=== PATIENT | male | born 1950 | race Caucasian/White ===

== ENCOUNTER 2017-12-30 14:22 | Outpatient (CLI) | payer MEDICARE ==
[2017-12-30 14:40] LABS: BASOPHILS % (AUTO) 0.3 %; EOSINOPHILS # (AUTO) 0.1 10^3/uL (0.0-0.7); HGB - HEMOGLOBIN 13.4 g/dL (14.0-18.0); LYMPHOCYTES # (AUTO) 1.3 10^3/uL (1.5-3.5); LYMPHOCYTES % (AUTO) 22.4 %; MEAN CORPUSCULAR HEMOGLOBIN 32.9 pg (27.0-31.0); MEAN CORPUSCULAR HGB CONC 34.2 g/dL (32.0-36.0); MEAN CORPUSCULAR VOLUME 96.2 fL (80.0-94.0); MONOCYTES # (AUTO) 0.6 10^3/uL (0.0-1.0); MONOCYTES % (AUTO) 10.8 %; NEUTROPHILS # (AUTO) 3.8 10^3/uL (1.5-6.6); NEUTROPHILS % (AUTO) 65.5 %; PLT - PLATELET COUNT 216 10^3/uL (130-450); RED BLOOD COUNT 4.07 10^6/uL (4.70-6.10); RED CELL DISTRIBUTION WIDTH 13.7 % (12.0-15.0); WHITE BLOOD COUNT 5.8 x10^3/uL (4.8-10.8)
[2017-12-30 15:06] LABS: ALBUMIN 4.6 g/dL (3.2-5.5); ALBUMIN/GLOBULIN RATIO 1.9 (1.0-2.2); ALKALINE PHOSPHATASE 61 IU/L (42-121); ALT ALANINE AMINOTRANSFERASE 32 IU/L (10-60); AST ASPARTATE AMINOTRANSFERASE 31 IU/L (10-42); BILIRUBIN,TOTAL 0.4 mg/dL (0.2-1.0); BUN - BLOOD UREA NITROGEN 14 mg/dL (6-20); CALCIUM 8.9 mg/dL (8.5-10.3); CARBON DIOXIDE - CO2 26 mmol/L (21-32); CHLORIDE 97 mmol/L (101-111); CHOLESTEROL 169 mg/dL; CREATININE 0.6 mg/dL (0.6-1.2); GFR - MDRD 134 (>89); GLUCOSE 99 mg/dL (70-100); HDL CHOLESTEROL 83 mg/dL; SODIUM 132 mmol/L (135-145)
[2017-12-30 15:29] LABS: LDL CHOLESTEROL,DIRECT 70 mg/dL; LDLD/HDL RATIO 0.8 (<3.6)
--- NOTE | 2017-12-31 12:40 | DEXA Report ---
DEXA SCAN: 12/30/2017 CLINICAL INDICATION: History of seizure disorder, high risk medication use. TECHNIQUE: Dual energy x-ray absorptiometry (DXA) was performed on a [employer] system. Regions measured are the AP spine, femoral neck, and, if needed, forearm. COMPARISON: None. In accordance with the International Society for Clinical Densitometry (ISCD) guidelines, data from previous exams may be reanalyzed using current recommendations and techniques. This is done to allow a more accurate basis for comparison with the current study. FINDINGS Data for the lumbar spine is as follows: REGION BMD (g/cm/cm) T-SCORE Z-SCORE L1 1.116 -0.4 0.2 L2 1.310 0.6 1.1 L3 1.461 1.8 2.4 L4 1.564 2.7 3.3 L1-L4 1.367 1.2 1.8 NOTE: All evaluable vertebrae are used for classification. Data for the hip is as follows: REGION BMD (g/cm/cm) T-SCORE Z-SCORE Neck 0.850 -1.7 -0.5 TOTAL 0.866 -1.6 -0.9 NOTE: The femoral neck or total proximal femur, whichever is lowest, is used for classification. IMPRESSION WHO CLASSIFICATION BASED ON THE INTERNATIONAL REFERENCE STANDARD IS OSTEOPENIA. FRACTURE RISK IS INCREASED. RECOMMENDATION: Patients with diagnosis of osteoporosis or osteopenia should have regular bone mineral density assessment. For those eligible for Medicare, routine testing is allowed once every 2 years. Testing frequency can be increased for patients who have rapidly progressing disease or for those who are receiving medical therapy to restore bone mass. COMMENT World Health Organization (WHO) definitions for osteoporosis and osteopenia: NORMAL BMD: T-score at 1.0 or higher, fracture risk is low. OSTEOPENIA BMD: T-score between 1.0 and -2.5, fracture risk is increased. OSTEOPOROSIS BMD: T-score at 2.5 or lower, fracture risk high. National Osteoporosis Foundation recommends: 1. Obtain adequate dietary calcium (at least 1200 mg per day) and vitamin D (400 -800 international units per day). 2. Participate, as appropriate, in regular weightbearing and muscle- strengthening exercise. 3. Avoid tobacco use and reduce alcohol and caffeine intake. 4. For more detailed information see the website at www.NOF.org. TD: 12/30/2017 16:22 MTDDave
== END 2017-12-30 14:23 | disposition home or self-care (01) ==
LOC: DI 14:22
PROVIDERS: ATTEND Internal Medicine
DX: M85.89 Other specified disorders of bone density and structure, multiple sites (principal); R56.9 Unspecified convulsions; Z79.899 Other long term (current) drug therapy; I10 Essential (primary) hypertension; I25.10 Atherosclerotic heart disease of native coronary artery without angina pectoris; E78.5 Hyperlipidemia, unspecified; G63 Polyneuropathy in diseases classified elsewhere
CPT/HCPCS: 36415; 77080; 80053; 80061; 83721; 84153; 84443; 85025

== ENCOUNTER 2018-06-12 10:11 | Outpatient (CLI) | payer MEDICARE | END 2018-06-12 10:12 | disposition home or self-care (01) | LOC: LAB 10:11 | PROVIDERS: ATTEND Surgery | DX: Z53.9 Procedure and treatment not carried out, unspecified reason (principal) ==

== ENCOUNTER 2018-11-26 13:53 | Outpatient (CLI) | payer MEDICARE ==
[2018-11-26 14:16] LABS: BASOPHILS % (AUTO) 0.3 %; EOSINOPHILS # (AUTO) 0.1 10^3/uL (0.0-0.7); EOSINOPHILS % (AUTO) 1.8 %; HGB - HEMOGLOBIN 12.8 g/dL (14.0-18.0); LYMPHOCYTES # (AUTO) 1.4 10^3/uL (1.5-3.5); LYMPHOCYTES % (AUTO) 24.8 %; MEAN CORPUSCULAR HEMOGLOBIN 32.6 pg (27.0-31.0); MEAN CORPUSCULAR HGB CONC 34.1 g/dL (32.0-36.0); MEAN CORPUSCULAR VOLUME 95.6 fL (80.0-94.0); MEAN PLATELET VOLUME 7.1 fL (7.4-11.4); MONOCYTES # (AUTO) 0.6 10^3/uL (0.0-1.0); NEUTROPHILS # (AUTO) 3.5 10^3/uL (1.5-6.6); NEUTROPHILS % (AUTO) 63.1 %; PLT - PLATELET COUNT 212 10^3/uL (130-450); RED BLOOD COUNT 3.92 10^6/uL (4.70-6.10); RED CELL DISTRIBUTION WIDTH 13.6 % (12.0-15.0); WHITE BLOOD COUNT 5.5 x10^3/uL (4.8-10.8)
[2018-11-26 14:30] LABS: ALBUMIN/GLOBULIN RATIO 1.3 (1.0-2.2); ALKALINE PHOSPHATASE 79 IU/L (42-121); ALT ALANINE AMINOTRANSFERASE 28 IU/L (10-60); AST ASPARTATE AMINOTRANSFERASE 27 IU/L (10-42); BILIRUBIN,TOTAL 0.3 mg/dL (0.2-1.0); BUN - BLOOD UREA NITROGEN 11 mg/dL (6-20); CARBAMAZEPINE (TEGRETOL) 6.3 ug/mL; CARBON DIOXIDE - CO2 24 mmol/L (21-32); CHLORIDE 100 mmol/L (101-111); CREATININE 0.6 mg/dL (0.6-1.2); GFR - MDRD 134 (>89); GLUCOSE 101 mg/dL (70-100); SODIUM 133 mmol/L (135-145)
== END 2018-11-26 13:54 | disposition home or self-care (01) ==
LOC: LAB 13:53
PROVIDERS: ATTEND Psychiatry & Neurology Neurology
DX: G40.909 Epilepsy, unspecified, not intractable, without status epilepticus (principal)
CPT/HCPCS: 36415; 80053; 80156; 80177; 82607; 85025

== ENCOUNTER 2018-12-18 13:58 | Outpatient (CLI) | payer MEDICARE | END 2018-12-18 13:59 | disposition home or self-care (01) | LOC: LAB 13:58 | PROVIDERS: ATTEND Psychiatry & Neurology Neurology | DX: G40.909 Epilepsy, unspecified, not intractable, without status epilepticus (principal) | CPT/HCPCS: 36415; 80177 ==

== ENCOUNTER 2019-10-19 10:28 | Outpatient (CLI) | payer MEDICARE ==
--- NOTE | 2019-10-19 14:18 | CARDIAC PROCEDURE NOTE ---
DATE OF SERVICE: 10/19/2019 Physician: Melissa Sevilla MD PROTOCOL: Modified Eugene. TIME: 7 minutes 32 seconds. METS: 7.05. REASON FOR STOPPING: Dyspnea and balance issues. Patient had also exercised for 1 minute after inje ction after having reached 85% of maximum predicted heart rate. HEART RATE RESPONSE: Baseline 49 to maximum 138. BLOOD PRESSURE RESPONSE: Baseline 124/69 to maximum 247/94. SYMPTOMS: None. ST SEGMENT RESPONSE: No significant ST segment elevations or depressions. ARRHYTHMIAS: None detected. IMPRESSION: No symptoms. No significant EKG changes. CONCLUSION: Await imaging studies. TD: 10/19/2019 13:03
--- NOTE | 2019-10-19 14:25 | Nuclear Medicine Report ---
Reason: CHEST PX, CAD Procedure Date: 10/19/2019 Accession Number: [id number] / [id number] Procedure: NM - Myocardial Perfusion STR/RST CPT Code: Final Report FULL RESULT: EXAM: SINGLE-ISOTOPE EXERCISE STRESS TEST. SINGLE-ISOTOPE AND ONE-DAY REST/STRESS MYOCARDIAL PERFUSION SCANS WITH TOMOGRAPHIC IMAGING, QUANTITATIVE ANALYSIS, WALL MOTION ANALYSIS AND CALCULATION OF EJECTION FRACTION. EXAM DATE: 10/19/2019 01:52 PM. CLINICAL HISTORY: CHEST PX, CAD. History of myocardial infarction. COMPARISON: None. TECHNIQUE: A rest myocardial perfusion scan was done with tomography after the intravenous administration of 10.9 mCi Tc-99m sestamibi. After an appropriate delay, a treadmill exercise stress was performed according to department protocol. The patient exercised for 7 minutes and 32 seconds. The maximum heart rate was 138 bpm, which was 92% of the maximum predicted heart rate of 150 bpm. At approximately peak heart rate, 41.6 mCi of Tc-99m sestamibi was injected for stress myocardial perfusion scan. Motion correction was applied when appropriate. Gated tomographic images were obtained for wall motion analysis and computation of left ventricular ejection fraction. FINDINGS: Perfusion images: Left ventricular chamber size appears normal at rest and unchanged at stress. No convincing fixed perfusion deficits. No convincing reversible perfusion deficits. SSS 2, SRS 2, SDS 0. Gated images: No convincing focal wall motion abnormality. Calculated left ventricular EDV 81 mL, ESV 17 mL. The left ventricular ejection fraction is estimated at 79% (normal > 50%). IMPRESSION: 1. No convincing reversible perfusion deficits to indicate stress-induced ischemia. 2. No convincing fixed perfusion deficits. 3. Left ventricular ejection fraction of 79% (normal > 50%). Please correlate findings with stress ECG tracings and procedure notes. RADIA
== END 2019-10-19 10:29 | disposition home or self-care (01) ==
LOC: DI 10:28
PROVIDERS: ATTEND Internal Medicine
DX: R07.9 Chest pain, unspecified (principal); I25.10 Atherosclerotic heart disease of native coronary artery without angina pectoris; R06.00 Dyspnea, unspecified; I25.2 Old myocardial infarction
CPT/HCPCS: 78452; 93017; A9500

== ENCOUNTER 2021-01-05 13:35 | Outpatient (CLI) | payer MEDICARE ==
[2021-01-05 13:52] LABS: BASOPHILS % (AUTO) 0.2 %; EOSINOPHILS # (AUTO) 0.1 10^3/uL (0.0-0.7); EOSINOPHILS % (AUTO) 2.6 %; HCT - HEMATOCRIT 41.1 % (42.0-52.0); HGB - HEMOGLOBIN 13.7 g/dL (14.0-18.0); LYMPHOCYTES # (AUTO) 1.3 10^3/uL (1.5-3.5); LYMPHOCYTES % (AUTO) 24.6 %; MEAN CORPUSCULAR HEMOGLOBIN 32.2 pg (27.0-31.0); MEAN CORPUSCULAR HGB CONC 33.3 g/dL (32.0-36.0); MEAN CORPUSCULAR VOLUME 96.7 fL (80.0-94.0); MEAN PLATELET VOLUME 8.8 fL (7.4-11.4); MONOCYTES # (AUTO) 0.7 10^3/uL (0.0-1.0); NEUTROPHILS # (AUTO) 3.2 10^3/uL (1.5-6.6); NEUTROPHILS % (AUTO) 59.4 %; PLT - PLATELET COUNT 223 10^3/uL (130-450); RED BLOOD COUNT 4.25 10^6/uL (4.70-6.10); RED CELL DISTRIBUTION WIDTH 13.2 % (12.0-15.0); WHITE BLOOD COUNT 5.4 x10^3/uL (4.8-10.8)
[2021-01-05 14:06] LABS: ALBUMIN 4.4 g/dL (3.2-5.5); ALBUMIN/GLOBULIN RATIO 1.6 (1.0-2.2); BILIRUBIN,TOTAL 0.4 mg/dL (0.2-1.0); CALCIUM 9.2 mg/dL (8.5-10.3); CREATININE 0.7 mg/dL (0.6-1.2); POTASSIUM 4.2 mmol/L (3.5-5.0); TOTAL PROTEIN 7.2 g/dL (6.7-8.2)
== END 2021-01-05 13:36 | disposition home or self-care (01) ==
LOC: LAB 13:35
PROVIDERS: ATTEND Psychiatry & Neurology Neurology
DX: G40.909 Epilepsy, unspecified, not intractable, without status epilepticus (principal)
CPT/HCPCS: 36415; 80053; 80157; 80177; 81599; 85025

== ENCOUNTER 2021-11-11 16:17 | Outpatient (CLI) | payer MEDICARE | END 2021-11-11 16:18 | disposition critical access hospital (66) | LOC: EMS 16:17 | DX: R56.9 Unspecified convulsions (principal) | CPT/HCPCS: A0425; A0429 ==

== ENCOUNTER 2021-11-11 16:22 | Emergency (ER) | payer MEDICARE ==
[2021-11-11 16:55] LABS: BASOPHILS % (AUTO) 0.2 %; EOSINOPHILS # (AUTO) 0.1 10^3/uL (0.0-0.7); HCT - HEMATOCRIT 40.2 % (42.0-52.0); HGB - HEMOGLOBIN 13.8 g/dL (14.0-18.0); LYMPHOCYTES # (AUTO) 1.3 10^3/uL (1.5-3.5); LYMPHOCYTES % (AUTO) 24.1 %; MEAN CORPUSCULAR HGB CONC 34.3 g/dL (32.0-36.0); MEAN CORPUSCULAR VOLUME 96.2 fL (80.0-94.0); MEAN PLATELET VOLUME 8.6 fL (7.4-11.4); MONOCYTES # (AUTO) 0.7 10^3/uL (0.0-1.0); MONOCYTES % (AUTO) 13.3 %; NEUTROPHILS # (AUTO) 3.2 10^3/uL (1.5-6.6); PLT - PLATELET COUNT 206 10^3/uL (130-450); RED BLOOD COUNT 4.18 10^6/uL (4.70-6.10); RED CELL DISTRIBUTION WIDTH 13.5 % (12.0-15.0); WHITE BLOOD COUNT 5.3 x10^3/uL (4.8-10.8)
--- NOTE | 2021-11-11 17:00 | ED Physician Documentation ---
History of Present Illness - Stated complaint Stated Complaint: SZ - Chief complaint Chief Complaint: Neuro - Additonal information Additional information: 71-year-old male who has a known seizure disorder presents the emergency department via EMS for evaluation after a seizure. He is amnesic to the events but he reports to me that he last had a seizure about 4 months ago. He describes that his seizures are typically petit mall. EMS was told that he was having a grand mall seizure. Patient is attended to by a neurologist but he is unsure the name of his neurologist or the names of his 2 antiepileptics. However he denies that he is missed any doses. Denies any cough or fevers. No recent illness nausea or vomiting. No dysuria. I spoke with the patient's . She reports that he typically has petit mall seizures. She thinks he has them about once weekly but they are typically in his sleep. Today seizure occurred when he was at rest in his recliner. She describes a generalized tonic-clonic or grand mal seizure that lasted about 3 minutes. He was foaming at the mouth. No loss of bowel or bladder. Patient does take carbamazepine 400 mg twice daily as well as Keppra 1000 mg twice daily. Review of Systems Constitutional: denies: Fever, Chills Eyes: reports: Reviewed and negative Ears: reports: Reviewed and negative Nose: reports: Reviewed and negative Throat: reports: Reviewed and negative Cardiac: reports: Reviewed and negative Respiratory: reports: Reviewed and negative GI: reports: Abdominal Pain, Nausea, Vomiting : denies: Dysuria, Frequency, Hesitancy Skin: denies: Rash, Lesions Musculoskeletal: reports: Reviewed and negative Neurologic: reports: Seizure. denies: Focal weakness, Numbness, Difficulty speaking, Confused, Altered mental status, Headache, LOC PD PAST MEDICAL HISTORY - Past Medical History Cardiovascular: Other - Past Surgical History Cardiovascular: Other - Present Medications Home Medications: Ambulatory Orders Medication Instructions Recorded Confirmed Ascorbate Calcium [Vitamin C] 500 mg PO BID 05/10/15 11/11/21 Aspirin [Aspir-Low] 81 mg PO DAILY 05/10/15 11/11/21 Atorvastatin [Lipitor] 1 tab PO DAILY 05/10/15 11/11/21 Calcium Carbonate [Calcium] 500 mg PO BID 05/10/15 11/11/21 Carbamazepine [Carbamazepine Xr] 400 tab PO BID 05/10/15 11/11/21 Cholecalciferol (Vitamin D3) 1,000 unit PO BID 05/10/15 11/11/21 [Vitamin D] Gluc Dowd/Chondro Dowd A/Vit C/Mn 1 cap PO BID 05/10/15 11/11/21 [Glucosamine 1,500 Complex Cp] Lisinopril 40 mg PO DAILY 05/10/15 11/11/21 Metoprolol Tartrate 25 mg PO DAILY 05/10/15 11/11/21 Multivitamin with Minerals 1 each PO BID 05/10/15 11/11/21 [Multiple Vitamin] [place]-3 Fatty Acids/Fish Oil [Fish 1 each PO BID 05/10/15 11/11/21 Oil 1,000 mg Capsule] Levetiracetam [Keppra Xr] 1,000 mg PO BID 11/11/21 11/11/21 - Allergies Allergies/Adverse Reactions: Allergies Allergy/AdvReac Type Severity Reaction Status Date / Time No Known Drug Allergies Allergy Verified 12/27/20 11:53 PD ED PE NORMAL - General General: Alert and oriented X 3, No acute distress, Well developed/nourished - HEENT HEENT: Atraumatic, Ears normal, Moist mucous membranes, Pharynx benign - Neck Neck: Supple, no meningeal sign, No adenopathy - Cardiac Cardiac: RRR, No murmur - Respiratory Respiratory: No respiratory distress, Clear bilaterally - Abdomen Abdomen: Normal bowel sounds, Soft, Non tender - Back Back: No spinal TTP - Derm Derm: Normal color, Warm and dry, No rash - Extremities Extremities: No deformity, No tenderness to palpate, Normal ROM s pain - Neuro Neuro: Alert and oriented X 3, shirt creaser 2-12 intact Eye Opening: Spontaneous Motor: Obeys Commands Verbal: Oriented GCS Score: 15 Results - Vitals Vitals: Vital Signs - 24 hr 11/11/21 11/11/21 16:26 16:34 Temperature 36.4 C L 36.5 C Heart Rate 78 86 Respiratory 10 L 15 Rate Blood Pressure 161/82 H 161/82 H O2 Saturation 95 97 Oxygen O2 Source Room air - Labs Labs: Laboratory Tests 11/11/21 11/11/21 16:50 16:50 WBC 5.3 RBC 4.18 L Hgb 13.8 L Hct 40.2 L MCV 96.2 H MCH 33.0 H MCHC 34.3 RDW 13.5 Plt Count 206 MPV 8.6 Neut # (Auto) 3.2 Lymph # (Auto) 1.3 L [place] # (Auto) 0.7 Eos # (Auto) 0.1 Baso # (Auto) 0.0 Absolute Nucleated RBC 0.00 Nucleated RBC % 0.0 Sodium 136 Potassium 3.5 Chloride 99 L Carbon Dioxide 21 Anion Gap 16.0 H BUN 13 Creatinine 0.8 Estimated GFR (MDRD) 95 Glucose 147 H Calcium 9.0 Total Bilirubin 0.6 AST 33 ALT 35 Alkaline Phosphatase 82 Total Protein 6.9 Albumin 4.2 Globulin 2.7 Albumin/Globulin Ratio 1.6 Lipase 29 - Rads (name of study) CT head Radiology: Final report received (No CT evidence of acute intracranial abnormalities. Age-related atrophy and mild white matter chronic small vessel ischemic changes) PD MEDICAL DECISION MAKING - ED course Complexity details: reviewed results, re-evaluated patient, considered differential, d/w patient, d/w senior clinical consultant (Rebecca with [facility]) ED course: 71-year-old male presents emergency department for evaluation after a grand mall seizure described by his at home. This gentleman does have a history of a seizure disorder but typically has petit mall seizures usually at night and about once a week. His presentation here is consistent with a seizure though he is amnesic to the events on initial presentation he has no focal neuro deficits and is alerted to person place and time. Screening labs are unrevealing. CT of the head was without acute findings. I did discuss this case with Dr. Mantilla his neurologist through [facility]. He makes the recommendation to increase his Keppra to 1500 mg each evening but continue 1000 mg in the mornings. He also makes the recommendation to increase the carbamazepine to 600 mg in the evening but continue 400 mg in the morning and he would like follow-up in his office. This plan has been discussed with the patient and his who are in agreement. Departure - Departure Disposition: 01 Home, Self Care Clinical Impression: Seizure Condition: Stable Record reviewed to determine appropriate education?: Yes Comments: Lj marquez are seen today in the emergency department after an apparent grand mal seizure at home. Your screening CT scan and labs today are unremarkable. I did discuss this case with Dr. Mccartney your neurologist through [facility]. He would make the recommendation for the following dose adjustments in your medications. Keppra 1000 mg every morning and 1500 mg every evening Carbamazepine 400 mg every morning and 600 mg every evening. He makes the recommendation that you call his office to arrange follow-up within the next few weeks. If at any point you find that your seizures are worsening, you have fevers chest pain slurred speech or focal weakness in your arms or legs and please return immediately to the ER for a second evaluation
[2021-11-11 17:09] LABS: ALBUMIN 4.2 g/dL (3.2-5.5); ALBUMIN/GLOBULIN RATIO 1.6 (1.0-2.2); BILIRUBIN,TOTAL 0.6 mg/dL (0.2-1.0); CREATININE 0.8 mg/dL (0.6-1.2); POTASSIUM 3.5 mmol/L (3.5-5.0); TOTAL PROTEIN 6.9 g/dL (6.7-8.2)
--- NOTE | 2021-11-11 18:21 | CT Report ---
PROCEDURE: HEAD WO INDICATIONS: seizure TECHNIQUE: Noncontrast 4.5 mm thick angled axial sections acquired from the foramen magnum to the vertex. For r adiation dose reduction, the following was used: automated exposure control, adjustment of mA and/or kV according to patient size. COMPARISON: None FINDINGS: Image quality: Excellent. CSF spaces: Basal cisterns are patent. No extra-axial fluid collections. The ventricles are symmet johanna in size and shape. Brain: No intracranial bleeds or masses. There is cerebral volume loss for age, with resultant vent ricular and sulcal prominence. There are periventricular and deep white matter chronic small vessel ischemic changes. There is intracranial internal carotid artery atherosclerosis. Skull and face: Calvarium and visualized facial bones appear intact, without suspicious lesions. Sinuses: Visualized sinuses and mastoids are clear. IMPRESSION: 1. No CT evidence of acute intracranial abnormalities. 2. Age-related atrophy and mild white matter chronic small vessel ischemic changes. Reviewed by: Brando Nash MD on 11/11/2021 6:19 PM PST Approved by: Brando Nash MD on 11/11/2021 6:19 PM PST Station ID: [id number]
[2021-11-11 18:36] VITALS: BP 130/80
== END 2021-11-11 18:41 | disposition home or self-care (01) ==
LOC: EDUNIT# → ED 16:22
DX: G40.401 Other generalized epilepsy and epileptic syndromes, not intractable, with status epilepticus (principal)
CPT/HCPCS: 36415; 80053; 83690; 85025; 99284

== ENCOUNTER 2021-11-11 22:05 | Outpatient (CLI) | payer MEDICARE | END 2021-11-11 22:06 | disposition critical access hospital (66) | LOC: EMS 22:05 | DX: R56.9 Unspecified convulsions (principal); S01.21XA Laceration without foreign body of nose, initial encounter; W22.03XA Walked into furniture, initial encounter; Y93.89 Activity, other specified; Y92.009 Unspecified place in unspecified non-institutional (private) residence as the place of occurrence of the external cause | CPT/HCPCS: A0425; A0429 ==

== ENCOUNTER 2021-11-11 22:11 | Emergency (ER) | payer MEDICARE ==
[2021-11-11 22:31] LABS: BASOPHILS % (AUTO) 0.1 %; EOSINOPHILS % (AUTO) 0.1 %; HCT - HEMATOCRIT 39.5 % (42.0-52.0); HGB - HEMOGLOBIN 13.7 g/dL (14.0-18.0); LYMPHOCYTES # (AUTO) 1.5 10^3/uL (1.5-3.5); LYMPHOCYTES % (AUTO) 17.1 %; MEAN CORPUSCULAR HEMOGLOBIN 33.5 pg (27.0-31.0); MEAN CORPUSCULAR HGB CONC 34.7 g/dL (32.0-36.0); MEAN CORPUSCULAR VOLUME 96.6 fL (80.0-94.0); MEAN PLATELET VOLUME 8.8 fL (7.4-11.4); MONOCYTES # (AUTO) 1.1 10^3/uL (0.0-1.0); MONOCYTES % (AUTO) 12.8 %; NEUTROPHILS # (AUTO) 5.9 10^3/uL (1.5-6.6); NEUTROPHILS % (AUTO) 69.5 %; PLT - PLATELET COUNT 224 10^3/uL (130-450); RED BLOOD COUNT 4.09 10^6/uL (4.70-6.10); RED CELL DISTRIBUTION WIDTH 13.6 % (12.0-15.0); WHITE BLOOD COUNT 8.5 x10^3/uL (4.8-10.8)
[2021-11-11 22:44] LABS: ALBUMIN 4.3 g/dL (3.2-5.5); ALBUMIN/GLOBULIN RATIO 1.7 (1.0-2.2); BILIRUBIN,TOTAL 0.5 mg/dL (0.2-1.0); CALCIUM 8.9 mg/dL (8.5-10.3); CREATININE 0.9 mg/dL (0.6-1.2); POTASSIUM 3.6 mmol/L (3.5-5.0); TOTAL PROTEIN 6.8 g/dL (6.7-8.2)
--- NOTE | 2021-11-12 03:03 | ED Physician Documentation ---
PD HPI SEIZURE - Stated complaint Stated Complaint: SEIZURE - Chief complaint Chief Complaint: Neuro - History obtained from History obtained from: Patient - History of Present Illness Timing - onset: Today Witnessed: Witnessed Number of seizures: Single History of seizures: Known seizure disorder Contributing factors: No: Off meds, EtOH withdrawal, Fever Similar symptoms before: Diagnosis (seizure d/o) Recently seen: Emergency Dept - Additional information Additional information: T+R from this ED earlier today for seizure in setting of known seizure d/o. GENET Reich contacted patients neurology group and a new regimen of his AEDs involving higher dosing was recommended and relayed to patient. He says he has not yet taken the higher doses of medications since previous visit. He is BIBA for having another GTC seizure (second seizure today; previous to today, last seizure was approximately 4 months ago). patient fell out of bed when he had tonights seizure, face-down and c/o facial pain, particularly over nasal bridge. Denies headache, denies neck pain Review of Systems Constitutional: reports: Reviewed and negative Eyes: reports: Reviewed and negative Cardiac: reports: Reviewed and negative Respiratory: reports: Reviewed and negative GI: reports: Reviewed and negative Skin: reports: Abrasion (s) (tongue) Musculoskeletal: reports: Reviewed and negative Neurologic: reports: Seizure. denies: Generalized weakness, Focal weakness, Numbness, Headache, Head injury PD PAST MEDICAL HISTORY - Past Medical History Cardiovascular: Other - Past Surgical History Cardiovascular: Other - Present Medications Home Medications: Ambulatory Orders Medication Instructions Recorded Confirmed Ascorbate Calcium [Vitamin C] 500 mg PO BID 05/10/15 11/11/21 Aspirin [Aspir-Low] 81 mg PO DAILY 05/10/15 11/11/21 Atorvastatin [Lipitor] 1 tab PO DAILY 05/10/15 11/11/21 Calcium Carbonate [Calcium] 500 mg PO BID 05/10/15 11/11/21 Carbamazepine [Carbamazepine Xr] 400 tab PO BID 05/10/15 11/11/21 Cholecalciferol (Vitamin D3) 1,000 unit PO BID 05/10/15 11/11/21 [Vitamin D] Gluc Dowd/Chondro Dowd A/Vit C/Mn 1 cap PO BID 05/10/15 11/11/21 [Glucosamine 1,500 Complex Cp] Lisinopril 40 mg PO DAILY 05/10/15 11/11/21 Metoprolol Tartrate 25 mg PO DAILY 05/10/15 11/11/21 Multivitamin with Minerals 1 each PO BID 05/10/15 11/11/21 [Multiple Vitamin] [place]-3 Fatty Acids/Fish Oil [Fish 1 each PO BID 05/10/15 11/11/21 Oil 1,000 mg Capsule] Levetiracetam [Keppra Xr] 1,000 mg PO BID 11/11/21 11/11/21 - Allergies Allergies/Adverse Reactions: Allergies Allergy/AdvReac Type Severity Reaction Status Date / Time No Known Drug Allergies Allergy Verified 12/27/20 11:53 PD ED PE NORMAL - Vitals Vital signs reviewed: Yes - General General: Alert and oriented X 3, No acute distress, Well developed/nourished - HEENT HEENT: PERRL, EOMI, Other (mild swelling, minimal tenderness nasal bridge. linear abrasion to left aspect of nasal bridge. no epistaxis nor septal hematoma) - Neck Neck: No bony TTP - Cardiac Cardiac: RRR, No murmur - Respiratory Respiratory: No respiratory distress, Clear bilaterally - Neuro Neuro: Alert and oriented X 3, splitter machine 2-12 intact, No motor deficit, No sensory deficit, Normal speech Eye Opening: Spontaneous Motor: Obeys Commands Verbal: Oriented GCS Score: 15 Results - Vitals Vitals: Oxygen O2 Source Room air - Labs Labs: Laboratory Tests 11/11/21 11/11/21 22:26 22:26 WBC 8.5 RBC 4.09 L Hgb 13.7 L Hct 39.5 L MCV 96.6 H MCH 33.5 H MCHC 34.7 RDW 13.6 Plt Count 224 MPV 8.8 Neut # (Auto) 5.9 Lymph # (Auto) 1.5 [place] # (Auto) 1.1 H Eos # (Auto) 0.0 Baso # (Auto) 0.0 Absolute Nucleated RBC 0.00 Nucleated RBC % 0.0 Sodium 137 Potassium 3.6 Chloride 99 L Carbon Dioxide 20 L Anion Gap 18.0 H BUN 16 Creatinine 0.9 Estimated GFR (MDRD) 83 L Glucose 147 H Calcium 8.9 Total Bilirubin 0.5 AST 38 ALT 34 Alkaline Phosphatase 82 Total Protein 6.8 Albumin 4.3 Globulin 2.5 Albumin/Globulin Ratio 1.7 Lipase 33 PD MEDICAL DECISION MAKING - ED course Complexity details: reviewed old records, reviewed results, re-evaluated patient, considered differential, d/w patient ED course: patient was T+R earlier today for seizure, returns due to having a second GTC seizure. His blood work tonight is unremarkable. CTH performed on previous visit was without concerning findings; given no new neurologic c/o except recurrence of seizure (no headache, weakness, numbness, visual changes), repeat imaging is not indicated at this time. He has not yet taken the recommended higher doses of his medications (keppra, carbamazepine); the increased dosing regiment was based on neurologists advice that was obtained in consult from the [employer]ODUCE ASSOCIATE who evaluated patient on todays earlier ED visit. He is observed in ED for a few hours on this visit and given 1gram IV keppra load. No further seizure activity during observation, then discharged home. I instructed him to take his morning doses of medications as per the instructions from the [employer] that evaluated him earlier today Departure - Departure Disposition: Home, Self Care Clinical Impression: Seizure Condition: Good Instructions: ED Seizure Recurrent Comments: You were given an intravenous dose of Keppra (1000 milligrams). This should significantly reduce the likelihood of further seizures. Later this morning, take your seizure medications at the higher doses that were recommended on the previous visit to the emergency department. Contact your neurologist on Saturday to arrange for next available appointment. Discharge Date/Time: 11/12/21 04:37
[2021-11-12] MEDS ORDERED: levETIRAcetam INJ 1,000 MG in SODIUM CHLORIDE 0.9% 100ML 100 ML IV STA (03:34)
[2021-11-12 04:26] VITALS: BP 137/68
== END 2021-11-12 04:37 | disposition home or self-care (01) ==
LOC: EDUNIT# → ED 22:11
DX: G40.401 Other generalized epilepsy and epileptic syndromes, not intractable, with status epilepticus (principal); S00.31XA Abrasion of nose, initial encounter; W06.XXXA Fall from bed, initial encounter; Y92.003 Bedroom of unspecified non-institutional (private) residence as the place of occurrence of the external cause
CPT/HCPCS: 36415; 80053; 83690; 85025; 96365; 99284

== ENCOUNTER 2021-11-15 13:07 | Outpatient (CLI) | payer MEDICARE ==
[2021-11-15 13:54] LABS: CARBAMAZEPINE (TEGRETOL) 8.4 ug/mL
== END 2021-11-15 13:08 | disposition home or self-care (01) ==
LOC: LAB 13:07
PROVIDERS: ATTEND Psychiatry & Neurology Neurology
DX: G40.909 Epilepsy, unspecified, not intractable, without status epilepticus (principal)
CPT/HCPCS: 36415; 80156; 80177

== ENCOUNTER 2023-02-05 11:21 | Outpatient (CLI) | payer MEDICARE ==
[2023-02-05 11:52] LABS: CARBAMAZEPINE (TEGRETOL) 7.6 ug/mL
== END 2023-02-05 11:22 | disposition home or self-care (01) ==
LOC: LAB 11:21
PROVIDERS: ATTEND Psychiatry & Neurology Neurology
DX: G40.909 Epilepsy, unspecified, not intractable, without status epilepticus (principal)
CPT/HCPCS: 36415; 80156; 80177

== ENCOUNTER 2023-02-07 12:58 | Outpatient (CLI) | payer MEDICARE | END 2023-02-07 12:59 | disposition home or self-care (01) | LOC: LAB 12:58 | PROVIDERS: ATTEND Psychiatry & Neurology Neurology | DX: G40.909 Epilepsy, unspecified, not intractable, without status epilepticus (principal) | CPT/HCPCS: 80177 ==

== ENCOUNTER 2023-11-05 10:17 | Outpatient (CLI) | payer MEDICARE ==
[2023-11-05 10:40] LABS: BASOPHILS % (AUTO) 0.2 %; EOSINOPHILS # (AUTO) 0.1 10^3/uL (0.0-0.7); EOSINOPHILS % (AUTO) 3.3 %; HCT - HEMATOCRIT 42.4 % (42.0-52.0); LYMPHOCYTES # (AUTO) 1.2 10^3/uL (1.5-3.5); LYMPHOCYTES % (AUTO) 28.7 %; MEAN PLATELET VOLUME 8.6 fL (7.4-11.4); MONOCYTES # (AUTO) 0.5 10^3/uL (0.0-1.0); MONOCYTES % (AUTO) 12.8 %; NEUTROPHILS # (AUTO) 2.3 10^3/uL (1.5-6.6); NEUTROPHILS % (AUTO) 54.8 %; PLT - PLATELET COUNT 203 10^3/uL (130-450); RED BLOOD COUNT 4.37 10^6/uL (4.70-6.10); RED CELL DISTRIBUTION WIDTH 12.4 % (12.0-15.0); WHITE BLOOD COUNT 4.2 x10^3/uL (4.8-10.8)
[2023-11-05 10:55] LABS: ALBUMIN 4.1 g/dL (3.2-5.5); ALBUMIN/GLOBULIN RATIO 1.6 (1.0-2.2); ALKALINE PHOSPHATASE 82 IU/L (42-121); ALT ALANINE AMINOTRANSFERASE 25 IU/L (10-60); AST ASPARTATE AMINOTRANSFERASE 22 IU/L (10-42); BILIRUBIN,TOTAL 0.3 mg/dL (0.2-1.0); BUN - BLOOD UREA NITROGEN 17 mg/dL (6-20); CALCIUM 9.4 mg/dL (8.5-10.3); CARBAMAZEPINE (TEGRETOL) 9.1 ug/mL; CARBON DIOXIDE - CO2 31 mmol/L (21-32); CHLORIDE 104 mmol/L (101-111); CHOL/HDL RATIO 2.6 (<5.0); CHOLESTEROL 164 mg/dL; CREATININE 0.7 mg/dL (0.6-1.3); GFR - MDRD 110 (>89); GLUCOSE 110 mg/dL (74-104); HDL CHOLESTEROL 63 mg/dL; LDL CHOLESTEROL,CALCULATED 84 mg/dL; LDL/HDL RATIO 1.3 (<3.6); POTASSIUM 4.4 mmol/L (3.5-4.5); SODIUM 137 mmol/L (135-145); TOTAL PROTEIN 6.7 g/dL (6.4-8.9); TRIGLYCERIDES 84 mg/dL (48-352); VLDL CHOLESTEROL 17 mg/dL
[2023-11-05 11:10] LABS: THYROID STIMULATING HORMONE 1.26 uIU/mL (0.34-5.60)
[2023-11-07 21:02] LABS: ESTIMATED AVERAGE GLUCOSE 114 mg/dL (70-100); HEMOGLOBIN A1c% 5.6 % (4.27-6.07)
== END 2023-11-05 10:18 | disposition home or self-care (01) ==
LOC: LAB 10:17
PROVIDERS: ATTEND Internal Medicine
DX: Z00.00 Encounter for general adult medical examination without abnormal findings (principal); R00.1 Bradycardia, unspecified; I25.10 Atherosclerotic heart disease of native coronary artery without angina pectoris; E78.5 Hyperlipidemia, unspecified; I10 Essential (primary) hypertension; R73.01 Impaired fasting glucose; Z79.899 Other long term (current) drug therapy
CPT/HCPCS: 36415; 80053; 80061; 80156; 80177; 83036; 83721; 84443; 85025

== ENCOUNTER 2024-05-20 10:47 | Day surgery (SDC) | payer MEDICARE ==
[2024-05-20] MEDS: LACTATED RINGERS 1,000 ML IV ONE ×2 (11:01→15:02)
--- NOTE | 2024-05-20 13:21 | ANESTHESIA ---
Pre-Anesthesia VS, & Labs - Diagnosis positive cologuard - Procedure colonoscopy Vital Signs: Temp Pulse Resp BP Pulse Ox O2 Flow Rate 36.3 C L 50 L 12 139/69 H 100 05/20/24 11:10 05/20/24 11:10 05/20/24 11:10 05/20/24 11:10 05/20/24 11:10 Height: 5 ft 5 in Weight (kg): 78.1 kg Body Mass Index: 28.6 BMI Classification: Overweight - NPO >8 hours Home Medications and Allergies Home Medications: Ambulatory Orders Cholesoff 450 mg PO BID 05/15/24 Meloxicam 7.5 mg PO DAILY 05/15/24 Metoprolol Succinate [Toprol Xl] 25 mg PO DAILY 05/15/24 amLODIPine [Norvasc] 5 mg PO DAILY 05/15/24 Aspirin [Aspir-Low] 81 mg PO DAILY 05/10/15 Atorvastatin [Lipitor] 20 mg PO DAILY 05/10/15 Carbamazepine [Carbamazepine Xr] 400 tab PO BID 05/10/15 Gluc Dowd/Chondro Dowd A/Vit C/Mn [Glucosamine 1,500 Complex Cp] 1 cap PO BID 05/10/15 Lisinopril 40 mg PO DAILY 05/10/15 [place]-3 Fatty Acids/Fish Oil [Fish Oil 1,000 mg Capsule] 1 each PO BID 05/10/15 Levetiracetam [Keppra Xr] 1,000 mg PO BID 11/11/21 Cholesoff 450 mg PO BID 05/15/24 Meloxicam 7.5 mg PO DAILY 05/15/24 Metoprolol Succinate [Toprol Xl] 25 mg PO DAILY 05/15/24 amLODIPine [Norvasc] 5 mg PO DAILY 05/15/24 Allergies/Adverse Reactions: Allergies Allergy/AdvReac Type Severity Reaction Status Date / Time No Known Drug Allergies Allergy Verified 12/27/20 11:53 Anes History & Medical History - Anesthetic History Anesthesia Complications: reports: No previous complications - Medical History Cardiovascular: reports: Hypertension, High cholesterol, NM, Murmur Pulmonary: reports: None Gastrointestinal: reports: None Urinary: reports: None Neuro: reports: Seizure disorder (epilepsy) Musculoskeletal: reports: Osteoarthritis Endocrine/Autoimmune: reports: None Skin: reports: None Smoking Status: Never smoker History of Cancer?: No Other Past Medical History: MGUS s/p treatment - Surgical History General: reports: Colonoscopy Eyes Ears Nose Throat (EENT): reports: Tonsil/Adenoidectomy Cardiothoracic: reports: Coronary stent, Other Exam General: Alert, Oriented x3, Cooperative, No acute distress Dental: WNL, Partials Lower Mouth Openin Fingerbreadth Neck Mobility: Normal Mallampati classification: II Thyromental Distance: 4-6 cm Mental/Cognitive Status: Alert/Oriented X3, Normal for patient Plan Anesthesia Type: General, Total IV Consent for Procedure(s) Verified and Reviewed: Yes Code Status: Attempt Resuscitation ASA classification: 3-Severe systemic disease Is this case an emergency?: No
[2024-05-20] MEDS ORDERED: PROPOFOL 500 MG/50 ML 500 MG/50 ML VIAL ONE (13:49)
[2024-05-20] MEDS ORDERED: LIDOCAINE-MPF 2% 5 ML VIAL ONE (13:50)
[2024-05-20] MEDS ORDERED: GLYCOPYRROLATE 1 MG/5 ML VIAL ONE (14:32)
[2024-05-20 15:40] VITALS: BP 134/78; O2SAT 100
--- NOTE | 2024-05-20 18:25 | ANESTHESIA POST OP EVALUATION ---
Anesthesia Post Eval - Post Anesthesia Eval Vitals: Last Vital Signs Temp 36.3 C L 05/20/24 15:10 Pulse 77 05/20/24 15:30 Resp 16 05/20/24 15:30 BP 134/78 H 05/20/24 15:30 Pulse Ox 100 05/20/24 15:30 O2 Flow Rate CV Function Including HR & BP: Stable Pain Control: Satisfactory Nausea & Vomiting: Negative Mental Status: Baseline Respiratory Status: Airway Patent Hydration Status: Satisfactory Anesthesia Complications: None
== END 2024-05-20 10:48 | disposition home or self-care (01) ==
LOC: SDS 10:47
PROVIDERS: ATTEND Surgery
PROC: 0DBN8ZX Excision of Sigmoid Colon, Via Natural or Artificial Opening Endoscopic, Diagnostic (ICD-10-PCS; principal; 2024-05-20 11:45)
DX: Z12.11 Encounter for screening for malignant neoplasm of colon (principal); R19.5 Other fecal abnormalities; K63.5 Polyp of colon; K64.9 Unspecified hemorrhoids; G40.909 Epilepsy, unspecified, not intractable, without status epilepticus; I10 Essential (primary) hypertension
CPT/HCPCS: 45380; J7120